=== PATIENT | female | born 2000 | race Caucasian/White ===

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

== ENCOUNTER 2020-01-15 08:26 | Inpatient (IN) | payer BC, OTHER ==
[2020-01-15] MEDS ORDERED: Cervidil 10 MG VAG SCH (17:00)
[2020-01-15] MEDS ORDERED: BRETHINE 1 MG/ML SQ PRN (17:00)
[2020-01-15] MEDS ORDERED: TYLENOL EXTRA STRENGTH 500 MG PO PRN (18:10)
[2020-01-15 19:08] LABS: Absolute Neutrophil Ct (ANC) 11.09 (1.4-6.9); BASOPHIL % 0.1 % (0.0-0.4); Basophil (Absolute #) 0.02 (0-0.4); Eosinophil % 0.6 % (0.00-5.0); Eosinophil (Absolute #) 0.09 (0-0.5); Hematocrit 34.7 % (35-47); Hemoglobin 10.9 gm/dl (12.0-16.0); Lymphocyte (Absolute #) 2.39 (1.0-4.6); Lymphocytes % 16.4 % (24.0-44.0); Mean Cell Volume 84.8 fl (78-100); Mean Corpuscular Hemoglobin 26.7 pg (26-32); Mean Corpuscular Hgb Concent. 31.4 g/dl (32-36); Mean Platelet Volume 12.2 fl (7.5-11.0); Monocyte (Absolute #) 0.98 (0.0-1.3); Monocytes % 6.7 % (0.0-12.0); Neutrophil % 76.2 % (36.0-66.0); Platelet Count 185 K/mm3 (150-450); Red Blood Count 4.09 M/mm3 (4.1-5.4); Red Cell Distribution Width 15.6 % (11.5-14.0); White Blood Count 14.6 K/mm3 (4.0-10.5)
[2020-01-15 19:29] LABS: Amphetamine,Urine NEGATIVE (NEGATIVE); Barbiturate,Urine NEGATIVE (NEGATIVE); Benzodiazepine,Urine NEGATIVE (NEGATIVE); Cocaine,Urine NEGATIVE (NEGATIVE); Methadone,Urine NEGATIVE (NEGATIVE); Opiate,Urine NEGATIVE (NEGATIVE); PCP,Urine NEGATIVE (NEGATIVE); THC,Urine NEGATIVE (NEGATIVE)
[2020-01-15] MEDS: Lactated Ringers 1,000 ML IV SCH (19:45)
[2020-01-16] MEDS ORDERED: PITOCIN 30 UNITS/ LR 500 ML 30 UNITS/500 ML IV.SOLN. IV SCH ×2 (06:00→18:30)
[2020-01-16] MEDS ORDERED: OB EPIDURAL NAROPIN/SUFENTANIL IN NACL EPIDURAL PRN (07:01)
[2020-01-16] MEDS ORDERED: Ephedrine Sulfate 50 MG/ML IV PRN (07:01)
[2020-01-16] MEDS ORDERED: Lactated Ringers 1,000 ML IV ONE (07:01)
[2020-01-16] MEDS: Lactated Ringers 1,000 ML IV SCH ×3 (08:16→15:48)
[2020-01-16] MEDS ORDERED: XYLOCAINE 1% HCL 20 ML MDV IJ PRN (14:11)
[2020-01-16] MEDS: Zofran 4 MG/2 ML VIAL IV PRN ×2 (14:28→18:36)
[2020-01-16] MEDS ORDERED: Ambien 10 MG PO PRN (17:22)
[2020-01-16] MEDS ORDERED: Dermoplast Spray TP PRN (17:22)
[2020-01-16] MEDS ORDERED: Mylicon 80MG PO PRN (17:22)
[2020-01-16] MEDS ORDERED: TUCKS TP PRN (17:22)
[2020-01-16] MEDS ORDERED: CORTISONE 1% CREAM TP PRN (17:22)
[2020-01-16] MEDS ORDERED: NORCO 5/325 MG PO PRN (17:22)
[2020-01-16] MEDS ORDERED: LANSINOH 40 GM TOP PRN (17:22)
[2020-01-16] MEDS: MOTRIN 400 MG PO PRN (19:15)
[2020-01-16] MEDS: Colace 100 MG PO SCH (21:50)
[2020-01-17] MEDS: MOTRIN 400 MG PO PRN ×2 (04:10→22:38)
[2020-01-17 04:28] LABS: Absolute Neutrophil Ct (ANC) 12.09 (1.4-6.9); BASOPHIL % 0.2 % (0.0-0.4); Basophil (Absolute #) 0.03 (0-0.4); Eosinophil % 1.1 % (0.00-5.0); Eosinophil (Absolute #) 0.19 (0-0.5); Hematocrit 34.4 % (35-47); Hemoglobin 10.9 gm/dl (12.0-16.0); Lymphocyte (Absolute #) 3.27 (1.0-4.6); Lymphocytes % 19.2 % (24.0-44.0); Mean Cell Volume 83.9 fl (78-100); Mean Corpuscular Hemoglobin 26.6 pg (26-32); Mean Corpuscular Hgb Concent. 31.7 g/dl (32-36); Mean Platelet Volume 11.6 fl (7.5-11.0); Monocyte (Absolute #) 1.42 (0.0-1.3); Monocytes % 8.4 % (0.0-12.0); Neutrophil % 71.1 % (36.0-66.0); Platelet Count 203 K/mm3 (150-450); Red Cell Distribution Width 15.7 % (11.5-14.0)
[2020-01-17] MEDS: Colace 100 MG PO SCH ×2 (09:15→21:46)
[2020-01-17] MEDS: FERREX 150 PO SCH (09:15)
[2020-01-17] MEDS ORDERED: M-M-R II Vaccine With Diluent SQ ONE (10:00)
[2020-01-17] MEDS ORDERED: FLUZONE QUAD 2020-2021 SYRINGE IM ONE (10:00)
[2020-01-18 02:13] VITALS: O2SAT 99
[2020-01-18] MEDS: FERREX 150 PO SCH (09:02)
[2020-01-18] MEDS: Colace 100 MG PO SCH (09:02)
[2020-01-18] MEDS: MOTRIN 400 MG PO PRN (09:02)
--- NOTE | 2020-01-18 10:37 | PCM.DS ---
Discharge Summary Date of Admission: 01/16/20 08:26 Admitting Physician: TAY LUU Consults: Consults on Case 01/16/20 07:05 Notify Anesthesia Provider PRN Primary Care Provider: TAY LUU Allergies Allergies No Known Drug Allergies Allergy (Verified 01/15/20 19:56) Hospital Summary - Hospital Course Hospital Course: patient had elective induction at 39 3/7wks, had . gbs was negative, meconium stained fluid but no distress on EFM. baby required resuscitation for meconium aspiration. mom had no complications from , no repair, mild lochia and did great with routine care. bottle feeding, well bonded with her son - Vitals & Intake/Output Vital Signs: Vital Signs Temperature 98.1 F 01/18/20 08:00 Pulse Rate 93 H 01/18/20 08:00 Respiratory Rate 18 01/18/20 08:00 Blood Pressure 116/69 01/18/20 08:00 O2 Sat by Pulse Oximetry 99 01/18/20 02:00 Intake & Output: Intake & Output 01/15/20 01/16/20 01/17/20 01/18/20 11:59 11:59 11:59 11:59 Intake Total 5800 6074 2450 Output Total 1500 Balance 5800 4574 2450 Weight 115.666 kg - Lab Result Diagrams: 01/17/20 04:15 Micro Results-Entire Visit: Microbiology 01/16/20 09:36 Urine Culture - Final Catherized NO GROWTH Discharge Exam General Appearance: no apparent distress, alert Neurologic Exam: alert, oriented x 3, cooperative, normal mood/affect, nml cerebellar function, sensation nml, No motor deficits Respiratory Exam: normal breath sounds, lungs clear, No respiratory distress Cardiovascular Exam: regular rate/rhythm, normal heart sounds Gastrointestinal/Abdomen Exam: soft, No tenderness, No mass Extremity Exam: normal inspection, normal range of motion Skin Exam: normal color, warm, dry Final Diagnosis/Problem List - Final Discharge Diagnosis/Problem (1) Vaginal delivery Current Visit: No Status: Acute Code(s): O80 - ENCOUNTER FOR FULL-TERM UNCOMPLICATED DELIVERY - Discharge Disposition: Home, Self-Care Condition: Stable Prescriptions: Continue Vits W-Ca,Fe,FA(<1Mg) [] 1 tab PO DAILY Follow up with: TAY LUU MD [Primary Care Provider] -
[2020-01-18 17:25] VITALS: BP 116/72; PULSE 80
== END 2020-01-18 15:40 | disposition home or self-care (01) | DRG 807 ==
LOC: OB 08:26 → OBSVTOIN 01-16 08:26
PROVIDERS: ADMIT Family Medicine; ATTEND Family Medicine
PROC: 10E0XZZ Delivery of Products of Conception, External Approach (ICD-10-PCS; principal; 2020-01-16)
DX: O69.81X0 Labor and delivery complicated by cord around neck, without compression, not applicable or unspecified (principal); Z37.0 Single live birth; Z3A.39 39 weeks gestation of pregnancy
CPT/HCPCS: 36415; 80307; 85025; 87086; 90471; 90707; G0378; J2405; J2590; J2795; A9270-GY

== ENCOUNTER 2020-03-14 23:24 | Emergency (ER) | payer BC, OTHER ==
[2020-03-14 23:54] VITALS: O2SAT 98
--- NOTE | 2020-03-15 00:17 | ERPHSYRPT ---
- History of Present Illness Time Seen by Provider: 03/15/20 00:12 Source: patient Exam Limitations: no limitations Physician History: pt cut left 5th digit on walei can at pip volar aspect with minor superficial cuts on fingers 234 as well. THe 5th digit wound is into SQ but tendon is not exposed and fxn is intact with fels/ext prox and distal phalanges. Neuro-vasc is intact also all digits. No FB with exploration and probing. underlying bone all nontender. Occurred: just prior to arrival Method of Injury: incised Quality: constant, sharpness Severity of Pain-Max: mild Severity of Pain-Current: mild Extremities Pain Location: 5th finger: left Modifying Factors: Improves With: immobilization, movement Associated Symptoms: none Allergies/Adverse Reactions: No Known Drug Allergies Allergy (Verified 03/14/20 23:50) Hx Tetanus, Diphtheria Vaccination/Date Given: Yes (could be >5 years) Hx Influenza Vaccination/Date Given: No Hx Pneumococcal Vaccination/Date Given: No - Review of Systems Constitutional: No Fever, No Chills Eyes: No Symptoms Ears, Nose, & Throat: No Symptoms Respiratory: No Cough, No Dyspnea Cardiac: No Chest Pain, No Edema, No Syncope Abdominal/Gastrointestinal: No Abdominal Pain, No Nausea, No Vomiting, No Diarrhea Genitourinary Symptoms: No Dysuria Musculoskeletal: No Back Pain, No Neck Pain Skin: Other (lac left 5th), No Rash Neurological: No Dizziness, No Focal Weakness, No Sensory Changes Psychological: No Symptoms Endocrine: No Symptoms Hematologic/Lymphatic: No Symptoms Immunological/Allergic: No Symptoms All Other Systems: Reviewed and Negative - Past Medical History Pertinent Past Medical History: No Neurological History: No Pertinent History ENT History: No Pertinent History Cardiac History: No Pertinent History Respiratory History: No Pertinent History Endocrine Medical History: No Pertinent History Musculoskeletal History: No Pertinent History GI Medical History: No Pertinent History History: No Pertinent History Psycho-Social History: Anxiety, Depression Female Reproductive Disorders: No Pertinent History - Past Surgical History Past Surgical History: No Neuro Surgical History: No Pertinent History Cardiac: No Pertinent History Respiratory: No Pertinent History Gastrointestinal: No Pertinent History Genitourinary: No Pertinent History Musculoskeletal: No Pertinent History Female Surgical History: No Pertinent History Other Surgical History: stop taking medicine last year. Concerta. - Social History Smoking Status: Never smoker How long have you smoked: 2yrs Exposure to second hand smoke: No Drug Use: none Patient Lives Alone: No - Nursing Vital Signs Nursing Vital Signs: Initial Vital Signs Temperature 98.1 F 03/14/20 23:52 Pulse Rate 99 H 03/14/20 23:52 Respiratory Rate 20 03/14/20 23:52 Blood Pressure 134/86 03/14/20 23:52 O2 Sat by Pulse Oximetry 98 03/14/20 23:52 Pain Scale Pain Intensity 0 - Physical Exam General Appearance: no apparent distress, alert Eyes, Ears, Nose, Throat Exam: moist mucous membranes Neck Exam: non-tender, supple Cardiovascular/Respiratory Exam: chest non-tender, normal breath sounds, regular rate/rhythm, no respiratory distress Abdominal Exam: non-tender, No guarding Back Exam: normal inspection, No vertebral tenderness Shoulder Exam: normal inspection, non-tender, no evidence of injury, normal ROM Elbow/Forearm Exam: normal inspection, non-tender, no evidence of injury, normal ROM Wrist Exam: normal inspection, non-tender, no evidence of injury, normal ROM Hand Exam: non-tender, normal ROM, laceration (left 5th, small superficial l 2-4 ), No bone tenderness DTR - Upper Extremity Exam: bicep (R): 2+, bicep (L): 2+, tricep (R): 2+, tricep (L): 2+ Neuro/Tendon Exam: normal sensation, normal motor functions, normal tendon functions, no evidence tendon injury, No motor deficit, No sensory deficit Mental Status Exam: alert, oriented x 3, cooperative Skin Exam: normal color, warm, dry, laceration SpO2 Interpretation: normal SpO2: 98 O2 Delivery: Room Air Procedures - Laceration/Wound Repair Left Finger Wound Location: Left, hand Wound Length (cm): 2 Wound's Depth, Shape: linear Wound Explored: no foreign body noted Irrigated: Yes (50 cc NS) Hibiclens Prep: Yes Anesthesia: local, 1% Lidocaine Volume Anesthetic (ccs): 2 Wound Debrided: minimal Wound Repaired With: sutures Suture Size/Type: 4-0, nylon Number of Sutures: 3 Layer Closure?: No Sterile Dressing Applied?: Yes Splint Applied?: No Sling Applied?: No - Course Nursing assessment & vital signs reviewed: Yes - Progress Progress: improved, re-examined Progress Note: 03/15/20 00:26 pt advised of some residual risk for undetected tendon injury or lac scar affecting ROM and to f/u PCP for referral and suture removal. Counseled pt/family regarding: diagnosis, need for follow-up - Departure Departure Disposition: Home Clinical Impression: Laceration, left 5th, superficial Left 2-4 Condition: Good Critical Care Time: No Referrals: TAY LUU MD [Primary Care Provider] - Instructions: Laceration Repair With Stitches (DC) Additional Instructions: keep wound clean apply bactroban twice daily with fresh bandage until healed. use on minor cuts as well. see your Dr to remove stitches in about 10 days. There may be some risk for scar tissue to affect range of motion or for undetected tendon or nerve injury which may require followup with your dr. to see hand specialist. return meantime if any concerns for infection as listed in instructions. followup with your Dr. for blood pressure. Prescriptions: Mupirocin [Bactroban OINTMENT] 22 gm TP BID #1 tube Cephalexin Mh 500 mg [Keflex 500 mg] 500 mg PO TID #14 capsule
[2020-03-15] MEDS ORDERED: Adacel Vial IM ONE ×2 (00:27→00:32)
[2020-03-15] MEDS ORDERED: KEFLEX 500 MG PO ONE (00:28)
[2020-03-15] MEDS ORDERED: KEFLEX 500 MG ONE (00:32)
[2020-03-15 01:01] VITALS: BP 109/84; PULSE 88
== END 2020-03-15 01:01 | disposition home or self-care (01) ==
LOC: ED 23:24
DX: S61.217A Laceration without foreign body of left little finger without damage to nail, initial encounter (principal); W26.8XXA Contact with other sharp object(s), not elsewhere classified, initial encounter
CPT/HCPCS: 12001; 90471; 90715; 99284; A9270-GY

== ENCOUNTER 2021-07-17 11:22 | Emergency (ER) | payer BC, OTHER ==
[2021-07-17 11:48] VITALS: BP 125/72
[2021-07-17] MEDS ORDERED: Sodium Chloride 0.9% 1000 ML 1,000 ML IV STA (11:55)
[2021-07-17] MEDS ORDERED: TORAdol 30 mg Injection IV ONE (11:55)
[2021-07-17] MEDS ORDERED: Reglan 10 MG/2 ML IV ONE (11:57)
[2021-07-17] MEDS ORDERED: BENADRYL 50 MG/ML IV ONE (11:57)
[2021-07-17] MEDS ORDERED: TORAdol 30 mg Injection ONE (12:08)
[2021-07-17] MEDS ORDERED: Sodium Chloride 0.9% 1000 ML 1,000 ML ONE (12:09)
[2021-07-17] MEDS ORDERED: BENADRYL 50 MG/ML ONE (12:09)
[2021-07-17] MEDS ORDERED: Reglan 10 MG/2 ML ONE (12:09)
[2021-07-17 12:32] LABS: Absolute Neutrophil Ct (ANC) 15.53 x10^3/uL (1.4-6.9); Basophil (Absolute #) 0.06 x10^3/uL (0-0.4); Eosinophil % 0.2 % (0.00-5.0); Eosinophil (Absolute #) 0.05 x10^3/uL (0-0.5); Hemoglobin 11.9 g/dL (12.0-16.0); Lymphocyte (Absolute #) 3.17 x10^3/uL (1.0-4.6); Lymphocytes % 15.3 % (24.0-44.0); Mean Cell Volume 85.5 fL (78-100); Mean Corpuscular Hemoglobin 28.3 pg (26-32); Mean Corpuscular Hgb Concent. 33.1 g/dL (32-36); Mean Platelet Volume 11.2 fL (7.5-11.0); Monocyte (Absolute #) 1.72 x10^3/uL (0.0-1.3); Monocytes % 8.3 % (0.0-12.0); Neutrophil % 75.2 % (36.0-66.0); Platelet Count 240 x10^3/uL (150-450); Red Blood Count 4.21 x10^6/uL (4.1-5.4); Red Cell Distribution Width 13.2 % (11.5-14.0); White Blood Count 20.7 x10^3/uL (4.0-10.5)
[2021-07-17 12:40] LABS: Appearance CLOUDY (CLEAR); Bilirubin SMALL (NEGATIVE); Glucose NEGATIVE (NEGATIVE)
[2021-07-17 12:41] LABS: Dipstick done @ ? MAIN LAB; Ketones NEGATIVE (NEGATIVE); Nitrite NEGATIVE (NEGATIVE); Protein,Urine Dip 30 (Negative); RBC LARGE Ery/ul (0-5); Specific Gravity 1.025 (1.005-1.025); Urobilinogen 1 mg/dL (0-1)
[2021-07-17 12:46] LABS: ALBUMIN 3.9 g/dL (3.5-5.0); ALKALINE PHOSPHATASE 54 U/L (38-126); ANION GAP 15.9 MEQ/L (5-15); BLOOD UREA NITROGEN 10 mg/dL (7-17); Bacteria MODERATE /HPF (NEGATIVE); CHLORIDE 102 mmol/L (98-107); Calcium 9.2 mg/dL (8.4-10.2); Carbon Dioxide 24 mmol/L (22-30); Creatinine 1 0.72 mg/dL (0.52-1.04); EST GLOMERULAR FILTRATION RATE > 60.0 ML/MIN; Epithelial Cells FEW /HPF (FEW); Glucose 109 mg/dL (74-106); Mucus MANY /HPF (NEGATIVE); Potassium 3.7 mmol/L (3.5-5.1); SGOT/AST 26 U/L (14-36); SGPT/ALT 55 U/L (0-35); SODIUM 138 mmol/L (137-145); Total Protein 7.1 g/dL (6.3-8.2)
[2021-07-17 12:48] LABS: Urine Cultured Indicated? YES
--- NOTE | 2021-07-17 13:06 | ERPHSYRPT ---
- History of Present Illness Time Seen by Provider: 07/17/21 11:23 Source: patient Exam Limitations: no limitations Patient Subjective Stated Complaint: pt reports sinus infection for one week, states she had a headache, facial pain, ear fullness, cough, fever, states now she also has some boils in her magan area. Triage Nursing Assessment: pt is aox3, appears in pain, pt unable to find position of comfort, afebrile at this time, resps easy and non labored, cap refill < 3 seconds, radial pulses strong and equal, pt skin moist, warm, intact. pt with 3 lesions to her magan area, two on her right buttock and one on her left buttock. skin is intact, skin is red, hot to touch and hard. Physician History: 20-year-old obese female presented in the ER with chief complaint of perirectal/buttocks swelling for the last 2 days along with fever chills. Patient reported gradually increased swelling with severe sharp shooting pain with 2 distinct swellings in the right gluteal fold and one on the left without any discharge. Pain is aggravated with sitting, movements, palpation, unable to find a comfortable spot. No history of diabetes mellitus or perirectal abscess in the past. Also have history of migraine and since yesterday having headaches with 2 episodes of vomiting which is unusual for her migraines. Migraines are poorly controlled 2-3 times a month with similar symptoms. Does not think this is the worst headache of her life. Timing/Duration: day(s) (2), constant, gradual onset, worse Fever Severity: severe Associated Symptoms: rash Allergies/Adverse Reactions: No Known Drug Allergies Allergy (Verified 07/17/21 11:48) Hx Tetanus, Diphtheria Vaccination/Date Given: Yes Hx Influenza Vaccination/Date Given: No Hx Pneumococcal Vaccination/Date Given: No Immunizations Up to Date: Yes Travel Risk - International Travel Have you traveled outside of the country in past 3 weeks: No - Coronavirus Screening Are you exhibiting any of the following symptoms?: No Symptoms: Fever, Cough: New Onset, Headaches/Body Aches/Fatigue Close contact with a COVID-19 positive Pt in past 14-21 Days: No - Vaccine Status Have you recieved a Covid-19 vaccination: No - Review of Systems Constitutional: No Symptoms Eyes: No Symptoms Ears, Nose, & Throat: Nose Congestion Respiratory: No Symptoms Cardiac: No Symptoms Abdominal/Gastrointestinal: No Symptoms Genitourinary Symptoms: No Symptoms Musculoskeletal: No Symptoms Skin: Cellulitis Neurological: No Symptoms Psychological: No Symptoms Endocrine: No Symptoms Hematologic/Lymphatic: No Symptoms Immunological/Allergic: No Symptoms - Past Medical History Pertinent Past Medical History: No Neurological History: No Pertinent History ENT History: No Pertinent History Cardiac History: No Pertinent History Respiratory History: No Pertinent History Endocrine Medical History: No Pertinent History Musculoskeletal History: No Pertinent History GI Medical History: No Pertinent History History: No Pertinent History Psycho-Social History: Anxiety, Depression Female Reproductive Disorders: No Pertinent History - Past Surgical History Past Surgical History: No Neuro Surgical History: No Pertinent History Cardiac: No Pertinent History Respiratory: No Pertinent History Gastrointestinal: No Pertinent History Genitourinary: No Pertinent History Musculoskeletal: No Pertinent History Female Surgical History: No Pertinent History Other Surgical History: stop taking medicine last year. Concerta. - Social History Smoking Status: Never smoker How long have you smoked: 2yrs Exposure to second hand smoke: No Drug Use: none Patient Lives Alone: No - Female History Hx Last Menstrual Period: 07/17/21 Hx Now: (unkn) - Nursing Vital Signs Nursing Vital Signs: Initial Vital Signs Temperature 98.8 F 07/17/21 11:33 Pulse Rate 119 H 07/17/21 11:33 Respiratory Rate 18 07/17/21 11:33 Blood Pressure 125/72 07/17/21 11:33 O2 Sat by Pulse Oximetry 97 07/17/21 11:33 Pain Scale Pain Intensity 9 - Physical Exam General Appearance: no apparent distress, alert Eye Exam: PERRL/EOMI, eyes nml inspection ENT Exam: nasal congestion Neck Exam: normal inspection, supple, full range of motion Respiratory Exam: normal breath sounds, lungs clear Cardiovascular/Chest Exam: normal heart sounds, tachycardia Gastrointestinal/Abdominal Exam: soft, non tender, no distention Rectal Exam: tenderness (3 distance swelling gluteal fold/perirectal area without any discharge. 1 area of induration on the left.), other Extremity Exam: non-tender, normal range of motion Neurologic Exam: alert, oriented x 3, cooperative Skin Exam: normal color SpO2 Interpretation: normal SpO2: 97 O2 Delivery: Room Air Ordered Tests: Active Orders 24 hr Category Date Time Status IV Insertion STAT Care 07/17/21 11:55 Active NPO (ED) STAT Care 07/17/21 11:55 Active PELVIS WITH CONTRAST [CT] Stat Exams 07/17/21 13:41 Taken BLOOD CULTURE Stat Lab 07/17/21 12:20 Received CBC W DIFF Stat Lab 07/17/21 12:20 Completed CMP Stat Lab 07/17/21 12:20 Completed CULTURE,URINE Stat Lab 07/17/21 12:20 Received HCG,QUALITATIVE URINE Stat Lab 07/17/21 12:26 Completed Lactic Acid Stat Lab 07/17/21 11:55 Completed UA W/RFX CULTURE Stat Lab 07/17/21 12:20 Completed Medication Summary Generic Name Dose Route Start Last Admin Trade Name Freq PRN Reason Stop Dose Admin Vancomycin HCl 2 gm in 400 mls @ 133.333 mls/hr 07/17/21 14:25 07/17/21 14:48 Vancomycin 2 Gram/400 Ml Bag IV 07/17/21 17:24 133.33 ml/hr STAT ONE 133.33 mls/hr Administration Discontinued Medications Generic Name Dose Route Start Last Admin Trade Name Freq PRN Reason Stop Dose Admin Diphenhydramine HCl 25 mg 07/17/21 11:57 07/17/21 12:30 Diphenhydramine Hcl 50 Mg/Ml Vial IV 07/17/21 11:58 25 mg STAT ONE Administration Diphenhydramine HCl Confirm 07/17/21 12:09 Diphenhydramine Hcl 50 Mg/Ml Vial Administered 07/17/21 12:10 Dose 50 mg .ROUTE .STK-MED ONE Sodium Chloride 1,000 mls @ 999 mls/hr 07/17/21 11:55 07/17/21 13:43 Sodium Chloride 0.9% 1000 Ml IV 07/17/21 12:55 Infused .Q1H1M STA Infusion Sodium Chloride Confirm 07/17/21 12:09 Sodium Chloride 0.9% 1000 Ml Administered 07/17/21 12:10 Dose 1,000 mls @ ud .ROUTE .STK-MED ONE Piperacillin Sod/Tazobactam 100 mls @ 200 mls/hr 07/17/21 13:16 07/17/21 13:41 Sod 3.375 gm/ Sodium Chloride IV 07/17/21 13:45 200 mls/hr STAT ONE Administration Sodium Chloride Confirm 07/17/21 13:39 Sodium Chloride 100ml Mini-Bag Plus Administered 07/17/21 13:40 Dose 100 mls @ ud IV .STK-MED ONE Vancomycin HCl Confirm 07/17/21 14:30 Vancomycin 2 Gram/400 Ml Bag Administered 07/17/21 14:31 Dose 2 gm in 400 mls @ ud IV .STK-MED ONE Ketorolac Tromethamine 30 mg 07/17/21 11:55 07/17/21 12:27 Ketorolac Tromethamine 30 Mg/Ml Inj IV 07/17/21 11:56 30 mg STAT ONE Administration Ketorolac Tromethamine Confirm 07/17/21 12:08 Ketorolac Tromethamine 30 Mg/Ml Inj Administered 07/17/21 12:09 Dose 30 mg .ROUTE .STK-MED ONE Metoclopramide HCl 10 mg 07/17/21 11:57 07/17/21 12:31 Metoclopramide Hcl 10 Mg/2 Ml Vial IV 07/17/21 11:58 10 mg STAT ONE Administration Metoclopramide HCl Confirm 07/17/21 12:09 Metoclopramide Hcl 10 Mg/2 Ml Vial Administered 07/17/21 12:10 Dose 10 mg .ROUTE .STK-MED ONE Piperacillin Sod/Tazobactam Sod Confirm 07/17/21 13:38 Piperacillin/Tazobactam Sodium 3.375 Gm Vial Administered 07/17/21 13:39 Dose 3.375 gm IV .STK-MED ONE Lab/Rad Data: Laboratory Result Diagrams 07/17/21 12:20 07/17/21 12:20 Laboratory Results 07/17/21 07/17/21 07/17/21 Range/Units 12:26 12:20 12:20 WBC (4.0-10.5) x10^3/uL RBC (4.1-5.4) x10^6/uL Hgb (12.0-16.0) g/dL Hct (35-47) % MCV (78-100) fL MCH (26-32) pg MCHC (32-36) g/dL RDW (11.5-14.0) % Plt Count (150-450) x10^3/uL MPV (7.5-11.0) fL Gran % (36.0-66.0) % Immature Gran % (Auto) (0.00-0.4) % Nucleat RBC Rel Count (0.00-0.1) % Eos # (Auto) (0-0.5) x10^3/uL Immature Gran # (Auto) (0.00-0.03) x10^3u/L Absolute Lymphs (auto) (1.0-4.6) x10^3/uL Absolute Monos (auto) (0.0-1.3) x10^3/uL Absolute Nucleated RBC (0.00-0.01) x10^3u/L Lymphocytes % (24.0-44.0) % Monocytes % (0.0-12.0) % Eosinophils % (0.00-5.0) % Basophils % (0.0-0.4) % Absolute Granulocytes (1.4-6.9) x10^3/uL Basophils # (0-0.4) x10^3/uL Sodium 138 (137-145) mmol/L Potassium 3.7 (3.5-5.1) mmol/L Chloride 102 (98-107) mmol/L Carbon Dioxide 24 (22-30) mmol/L Anion Gap 15.9 H (5-15) MEQ/L BUN 10 (7-17) mg/dL Creatinine 0.72 (0.52-1.04) mg/dL Estimated GFR > 60.0 ML/MIN Glucose 109 H (74-106) mg/dL Lactic Acid (0.4-2.0) Calcium 9.2 (8.4-10.2) mg/dL Total Bilirubin 1.10 (0.2-1.3) mg/dL AST 26 (14-36) U/L ALT 55 H (0-35) U/L Alkaline Phosphatase 54 (38-126) U/L Serum Total Protein 7.1 (6.3-8.2) g/dL Albumin 3.9 (3.5-5.0) g/dL Urinalys Dipstick Clnc MAIN LAB Urine Color DARK YELLOW (YELLOW) Urine Appearance CLOUDY (CLEAR) Urine pH 6.0 (5-6) Ur Specific Rembrandt 1.025 (1.005-1.025) POC Urine Protein Conf 30 (Negative) Urine Ketones NEGATIVE (NEGATIVE) Urine Nitrite NEGATIVE (NEGATIVE) Urine Bilirubin SMALL (NEGATIVE) Urine Urobilinogen 1 (0-1) mg/dL Urine Leukocytes NEGATIVE (NEGATIVE) Urine WBC (Auto) 16-25 (0-5) /HPF Urine RBC (Auto) 3-5 (0-2) /HPF U Epithel Cells (Auto) FEW (FEW) /HPF Urine Bacteria (Auto) MODERATE (NEGATIVE) /HPF Urine RBC LARGE (0-5) Horacio/ul Urine Mucus (Auto) MANY (NEGATIVE) /HPF Ur Culture Indicated? YES Urine Glucose NEGATIVE (NEGATIVE) mg/dL Urine HCG, Qual NEGATIVE (Negative) 07/17/21 07/17/21 Range/Units 12:20 11:55 WBC 20.7 H (4.0-10.5) x10^3/uL RBC 4.21 (4.1-5.4) x10^6/uL Hgb 11.9 L (12.0-16.0) g/dL Hct 36.0 (35-47) % MCV 85.5 (78-100) fL MCH 28.3 (26-32) pg MCHC 33.1 (32-36) g/dL RDW 13.2 (11.5-14.0) % Plt Count 240 (150-450) x10^3/uL MPV 11.2 H (7.5-11.0) fL Gran % 75.2 H (36.0-66.0) % Immature Gran % (Auto) 0.7 H (0.00-0.4) % Nucleat RBC Rel Count 0.0 (0.00-0.1) % Eos # (Auto) 0.05 (0-0.5) x10^3/uL Immature Gran # (Auto) 0.14 H (0.00-0.03) x10^3u/L Absolute Lymphs (auto) 3.17 (1.0-4.6) x10^3/uL Absolute Monos (auto) 1.72 H (0.0-1.3) x10^3/uL Absolute Nucleated RBC 0.00 (0.00-0.01) x10^3u/L Lymphocytes % 15.3 L (24.0-44.0) % Monocytes % 8.3 (0.0-12.0) % Eosinophils % 0.2 (0.00-5.0) % Basophils % 0.3 (0.0-0.4) % Absolute Granulocytes 15.53 H (1.4-6.9) x10^3/uL Basophils # 0.06 (0-0.4) x10^3/uL Sodium (137-145) mmol/L Potassium (3.5-5.1) mmol/L Chloride (98-107) mmol/L Carbon Dioxide (22-30) mmol/L Anion Gap (5-15) MEQ/L BUN (7-17) mg/dL Creatinine (0.52-1.04) mg/dL Estimated GFR ML/MIN Glucose (74-106) mg/dL Lactic Acid 1.2 (0.4-2.0) Calcium (8.4-10.2) mg/dL Total Bilirubin (0.2-1.3) mg/dL AST (14-36) U/L ALT (0-35) U/L Alkaline Phosphatase (38-126) U/L Serum Total Protein (6.3-8.2) g/dL Albumin (3.5-5.0) g/dL Urinalys Dipstick Clnc Urine Color (YELLOW) Urine Appearance (CLEAR) Urine pH (5-6) Ur Specific Rembrandt (1.005-1.025) POC Urine Protein Conf (Negative) Urine Ketones (NEGATIVE) Urine Nitrite (NEGATIVE) Urine Bilirubin (NEGATIVE) Urine Urobilinogen (0-1) mg/dL Urine Leukocytes (NEGATIVE) Urine WBC (Auto) (0-5) /HPF Urine RBC (Auto) (0-2) /HPF U Epithel Cells (Auto) (FEW) /HPF Urine Bacteria (Auto) (NEGATIVE) /HPF Urine RBC (0-5) Horacio/ul Urine Mucus (Auto) (NEGATIVE) /HPF Ur Culture Indicated? Urine Glucose (NEGATIVE) mg/dL Urine HCG, Qual (Negative) - Progress Progress: improved, pain not gone completely Progress Note: 07/17/21 15:45 20-year-old is evaluated for perirectal swelling with fever chills. Given fluids and morphine for symptomatic relief, on reevaluation feeling much better. Has a white count of 20 K. Given a dose of Zosyn and vancomycin. Obtain CT pelvis which showed finding consistent with perirectal abscess. Discussed with Dr. Oconnell recommended admission and I&D in the morning. I discussed plan with the patient who refused to stay because of her kids at home are alone. Discussed with Dr. Oconnell again, patient will be discharged and will report on the same day surgery tomorrow morning and recommended keeping her n.p.o. after midnight. Discussed signs symptoms of worsening needing return to ER which he seems understanding. Will give Bactrim and clindamycin to go home. Discussed with : Other Counseled pt/family regarding: lab results, diagnosis, need for follow-up, rad results - Departure Departure Disposition: Home Clinical Impression: Perirectal abscess, Acute UTI, Migraine Condition: Stable Critical Care Time: No Referrals: TAY LUU MD [Primary Care Provider] - Follow Up with PCP/3 days MIRZA OCONNELL MD [ACTIVE STAFF] - Follow up/PCP as directed (Tomorrow for reevaluation) Instructions: Skin Abscess Additional Instructions: Take pain medications as needed. N.p.o. after midnight. Reported same-day surgery tomorrow morning for incision and drainage. Return to ER for excruciating pain, persistent fever, palpitations etc. Prescriptions: Hydrocodone/Acetaminophen [Hydrocodone-Acetamin 7.5-325] 1 each PO Q6HPRN PRN 3 Days #12 tablet MDD 4 PRN Reason: Pain Smz/Tmp Ds Tablet [Bactrim Ds Tablet] 1 udtab PO BID #14 tablet clindamycin HCL [Clindamycin HCl] 300 mg PO QID 7 Days #28 cap
[2021-07-17] MEDS ORDERED: PIPERACILLIN/TAZOBACTAM 3.375 GM in Sodium Chloride 100ML MINI-BAG PLUS 100 ML IV ONE (13:16)
[2021-07-17] MEDS ORDERED: PIPERACILLIN/TAZOBACTAM IV ONE (13:38)
[2021-07-17] MEDS ORDERED: Sodium Chloride 100ML MINI-BAG PLUS 100 ML IV ONE (13:39)
[2021-07-17] MEDS ORDERED: VANCOMYCIN 2 GRAM/400 ML BAG 2 GM/400 ML PIGGYBACK IV ONE ×2 (14:25→14:30)
[2021-07-17 15:54] VITALS: PULSE 88; O2SAT 96
[2021-07-17 18:10] LABS: Slide Review 1 YES
--- NOTE | 2021-07-18 08:50 | XRAY ---
Indication: Perirectal abscesses. Elevated WBC. Multiple contiguous axial images obtained through the pelvis only using 80 cc Isovue 370 contrast. Comparison: None Anus demonstrates a right-sided 3.8 x 1.5 x 2.0 cm fluid collection with tiny air bubbles and surrounding induration favoring known perirectal abscess. No pelvic pathologic lymphadenopathy. There are a few centimeter/subcentimeter inguinal lymph nodes, none pathologically enlarged. Visualized bowel loops appear nonobstructed. Remaining uterus, urinary bladder, and iliac vessels are normal in CT appearance. Impression: Small perirectal abscess as detailed. Comment: Preliminary interpretation made by [facility]. No critical discrepancy.
== END 2021-07-17 17:58 | disposition home or self-care (01) ==
LOC: ED 11:22
DX: K61.1 Rectal abscess (principal); N39.0 Urinary tract infection, site not specified; G43.909 Migraine, unspecified, not intractable, without status migrainosus; R50.9 Fever, unspecified; Z79.891 Long term (current) use of opiate analgesic
CPT/HCPCS: 36000; 36415; 72193; 80053; 81015; 83605; 84703; 85025; 87040; 87077; 87086; 87186; 96360; 96374; 96375; 99284; J1200; J1885; J3370

== ENCOUNTER 2023-12-27 13:57 | Emergency (ER) | payer BC ==
--- NOTE | 2023-12-27 14:03 | ERPHSYRPT ---
- History of Present Illness Time Seen by Provider: 12/27/23 14:03 Source: patient Exam Limitations: no limitations Physician History: This is a 23-year-old white female patient of Dr. Luu who presents by private vehicle secondary to dark vaginal bleeding and associated bilateral suprapubic cramping. The patient states her last menstrual period started on 11/16/2023. She does not recall how long her last menstrual period lasted. Patient has taken test that have been positive. In addition, per her report, she is also had quantitative hCG levels that were elevated then dipped down and then increased. Patient states she has had vaginal spotting that has been intermittent throughout the last 2 months. Today, things changed in terms of the color, constant nature of her vaginal bleeding and the associated suprapubic cramping. Patient takes no medications chronically and she has no known drug allergies. Her first obstetrics appointment is scheduled for 01/03/2024. Patient has a history of anxiety and depression. Timing/Duration: today Activites at Onset: none Quality: cramping (Bilateral suprapubic) Onset Location: suprapubic (suprapubic bilateral) Pain Radiation: none Severity of Pain-Max: mild (To moderate) Severity of Pain-Current: mild (To moderate) Prior abdominal problems: none Sexual intercourse history: non-contributory Modifying Factors: Improves With: nothing, other Associated Symptoms: abdominal pain (Lateral suprapubic cramping), , vaginal discharge (Dark vaginal bleeding) Allergies/Adverse Reactions: No Known Drug Allergies Allergy (Verified 12/27/23 14:04) Home Medications: No Reportable Medications [No Reported Medications] 12/27/23 [History] Hx Tetanus, Diphtheria Vaccination/Date Given: Yes Hx Influenza Vaccination/Date Given: No Hx Pneumococcal Vaccination/Date Given: No Travel Risk - International Travel Have you traveled outside of the country in past 3 weeks: No - Emerging Infectious Disease Are you exhibiting symptoms associated with any current EIDs: No - Review of Systems Constitutional: No Symptoms Eyes: No Symptoms Ears, Nose, & Throat: No Symptoms Respiratory: No Symptoms Cardiac: No Symptoms Abdominal/Gastrointestinal: Abdominal Pain (Bilateral suprapubic cramping), No Nausea, No Vomiting, No Diarrhea, No Constipation Genitourinary Symptoms: No Symptoms, , Vaginal Bleeding (Bilateral suprapubic cramping with associated dark vaginal bleeding) Musculoskeletal: No Symptoms Skin: No Symptoms Neurological: Other (Lightheaded) Psychological: No Symptoms Endocrine: No Symptoms Hematologic/Lymphatic: No Symptoms Immunological/Allergic: No Symptoms All Other Systems: Reviewed and Negative - Past Medical History Pertinent Past Medical History: No Neurological History: No Pertinent History ENT History: No Pertinent History Cardiac History: No Pertinent History Respiratory History: No Pertinent History Endocrine Medical History: No Pertinent History Musculoskeletal History: No Pertinent History GI Medical History: No Pertinent History History: No Pertinent History Psycho-Social History: Anxiety, Depression Female Reproductive Disorders: No Pertinent History - Past Surgical History Past Surgical History: No Neuro Surgical History: No Pertinent History Cardiac: No Pertinent History Respiratory: No Pertinent History Gastrointestinal: No Pertinent History Genitourinary: No Pertinent History Musculoskeletal: No Pertinent History Female Surgical History: No Pertinent History Other Surgical History: stop taking medicine last year. Concerta. - Social History Smoking Status: Never smoker How long have you smoked: 2yrs Exposure to second hand smoke: No Drug Use: none Patient Lives Alone: No - Nursing Vital Signs Nursing Vital Signs: Initial Vital Signs Temperature 99 F 12/27/23 14:04 Pulse Rate 124 H 12/27/23 14:04 Respiratory Rate 20 12/27/23 14:04 Blood Pressure 136/87 12/27/23 14:04 O2 Sat by Pulse Oximetry 98 12/27/23 14:04 Pain Scale Pain Intensity 5 - Physical Exam General Appearance: no apparent distress, alert, anxiety Eye Exam: PERRL/EOMI, eyes nml inspection Ears, Nose, Throat Exam: normal ENT inspection, moist mucous membranes Neck Exam: normal inspection, non-tender, supple, full range of motion Respiratory Exam: normal breath sounds, lungs clear, airway intact, No chest tenderness, No respiratory distress Cardiovascular Exam: tachycardia Gastrointestinal/Abdomen Exam: soft, normal bowel sounds, tenderness Pelvic Exam: not done Rectal Exam: not done Back Exam: normal inspection, normal range of motion, No CVA tenderness, No vertebral tenderness Extremity Exam: normal inspection, normal range of motion, pelvis stable Neurologic Exam: alert, oriented x 3, cooperative, mineral mixer II-XII nml as tested, nml cerebellar function, nml station & gait, sensation nml Skin Exam: normal color, warm, dry Lymphatic Exam: No adenopathy SpO2 Interpretation: normal O2 Delivery: Room Air - Course Nursing assessment & vital signs reviewed: Yes Ordered Tests: Active Orders 24 hr Category Date Time Status OB <14 WKS 1ST GESTATION [US] Stat Exams 12/27/23 14:26 Taken CBC W DIFF Stat Lab 12/27/23 14:47 Completed CMP Stat Lab 12/27/23 14:47 Completed CULTURE,URINE Stat Lab 12/27/23 14:29 Received HCG QUALITATIVE, SERUM Stat Lab 12/27/23 14:47 Completed HCG, Quantitative (Inhouse) Stat Lab 12/27/23 14:47 Completed UA W/RFX UR CULTURE Stat Lab 12/27/23 14:29 Completed Lab/Rad Data: Laboratory Result Diagrams 12/27/23 14:47 12/27/23 14:47 Laboratory Results 12/27/23 12/27/23 12/27/23 Range/Units 14:47 14:47 14:47 WBC 9.3 (3.98-10.04) x10^3/uL RBC 4.29 (3.93-5.22) x10^6/uL Hgb 11.4 (11.2-15.7) g/dL Hct 34.9 (34.1-44.9) % MCV 81.4 (79.4-94.8) fL MCH 26.6 (25.6-32.2) pg MCHC 32.7 (32.2-35.5) g/dL RDW 13.5 (11.7-14.4) % Plt Count 279 (182-369) x10^3/uL MPV 10.7 (9.4-12.3) fL Gran % 55.3 (34.0-71.1) % Immature Gran % (Auto) 0.4 (0.001-0.429) % Nucleat RBC Rel Count 0.0 (0.00-0.2) % Eos # (Auto) 0.13 (0.04-0.36) x10^3/uL Immature Gran # (Auto) 0.04 H (0.001-0.031) x10^3u/L Absolute Lymphs (auto) 3.33 (1.18-3.74) x10^3/uL Absolute Monos (auto) 0.63 (0.24-0.86) x10^3/uL Absolute Nucleated RBC 0.00 (0.00-0.012) x10^3u/L Lymphocytes % 35.7 (19.3-51.7) % Monocytes % 6.8 (4.7-12.5) % Eosinophils % 1.4 (0.7-5.8) % Basophils % 0.4 (0.1-1.2) % Absolute Granulocytes 5.16 (1.56-6.13) x10^3/uL Basophils # 0.04 (0.01-0.08) x10^3/uL Sodium 143 (135-145) mmol/L Potassium 3.7 (3.5-5.1) mmol/L Chloride 109 H (98-107) mmol/L Carbon Dioxide 22 (22-30) mmol/L Anion Gap 15.3 H (5-15) MEQ/L BUN 15 (7-17) mg/dL Creatinine 0.94 (0.52-1.04) mg/dL Estimated GFR 86.9 ML/MIN Glucose 102 (74-106) mg/dL Calcium 9.3 (8.4-10.2) mg/dL Total Bilirubin 0.30 (0.2-1.3) mg/dL AST 117 H (14-36) U/L ALT 224 H (0-35) U/L Alkaline Phosphatase 58 (38-126) U/L Serum Total Protein 7.0 (6.3-8.2) g/dL Albumin 4.0 (3.5-5.0) g/dL Serum HCG, Qual POSITIVE (NEGATIVE) Beta HCG, Quant 77.38 mIU/ml Urine Color (Yellow) Urine Appearance (Clear) Urine pH (4.6-8.0) Ur Specific [place] (1.005-1.030) Urine Protein (Negative) Urine Glucose (UA) (Negative) mg/dL Urine Ketones (Negative) Urine Blood (Negative) Urine Nitrite (Negative) Urine Bilirubin (Negative) Urine Urobilinogen (0.2) mg/dL Ur Leukocyte Esterase (Negative) U Hyaline Cast (Auto) (0-2) /LPF Urine Microscopic RBC (0-5) /HPF Urine Microscopic WBC (0-5) /HPF Ur Epithelial Cells (None Seen) /HPF Urine Bacteria (None Seen) /HPF Urine Culture Reflexed (NO) 12/27/23 Range/Units 14:29 WBC (3.98-10.04) x10^3/uL RBC (3.93-5.22) x10^6/uL Hgb (11.2-15.7) g/dL Hct (34.1-44.9) % MCV (79.4-94.8) fL MCH (25.6-32.2) pg MCHC (32.2-35.5) g/dL RDW (11.7-14.4) % Plt Count (182-369) x10^3/uL MPV (9.4-12.3) fL Gran % (34.0-71.1) % Immature Gran % (Auto) (0.001-0.429) % Nucleat RBC Rel Count (0.00-0.2) % Eos # (Auto) (0.04-0.36) x10^3/uL Immature Gran # (Auto) (0.001-0.031) x10^3u/L Absolute Lymphs (auto) (1.18-3.74) x10^3/uL Absolute Monos (auto) (0.24-0.86) x10^3/uL Absolute Nucleated RBC (0.00-0.012) x10^3u/L Lymphocytes % (19.3-51.7) % Monocytes % (4.7-12.5) % Eosinophils % (0.7-5.8) % Basophils % (0.1-1.2) % Absolute Granulocytes (1.56-6.13) x10^3/uL Basophils # (0.01-0.08) x10^3/uL Sodium (135-145) mmol/L Potassium (3.5-5.1) mmol/L Chloride (98-107) mmol/L Carbon Dioxide (22-30) mmol/L Anion Gap (5-15) MEQ/L BUN (7-17) mg/dL Creatinine (0.52-1.04) mg/dL Estimated GFR ML/MIN Glucose (74-106) mg/dL Calcium (8.4-10.2) mg/dL Total Bilirubin (0.2-1.3) mg/dL AST (14-36) U/L ALT (0-35) U/L Alkaline Phosphatase (38-126) U/L Serum Total Protein (6.3-8.2) g/dL Albumin (3.5-5.0) g/dL Serum HCG, Qual (NEGATIVE) Beta HCG, Quant mIU/ml Urine Color Yellow (Yellow) Urine Appearance Clear (Clear) Urine pH 5.5 (4.6-8.0) Ur Specific [place] 1.020 (1.005-1.030) Urine Protein Negative (Negative) Urine Glucose (UA) Negative (Negative) mg/dL Urine Ketones Negative (Negative) Urine Blood Moderate A (Negative) Urine Nitrite Negative (Negative) Urine Bilirubin Negative (Negative) Urine Urobilinogen 1.0 A (0.2) mg/dL Ur Leukocyte Esterase Trace A (Negative) U Hyaline Cast (Auto) NONE SEEN (0-2) /LPF Urine Microscopic RBC 0-2 (0-5) /HPF Urine Microscopic WBC 0-2 (0-5) /HPF Ur Epithelial Cells Few (None Seen) /HPF Urine Bacteria Few A (None Seen) /HPF Urine Culture Reflexed YES (NO) - Progress Progress: re-examined Air Movement: good Progress Note: 12/27/23 14:57 My medical decision making and the assignment of moderate complexity to this patient's medical issue today is based on review of the patient's past medical history, review of the patient's medication list, reviewed patient drug allergy list, history present illness and physical findings on examination. The workup in this patient includes a CBC, CMP, urinalysis, quantitative hCG, serum qualitative hCG, OB less than 14 weeks ultrasound Differential diagnosis includes but is not limited to vaginal bleeding in first trimester, pending spontaneous miscarriage, urinary tract infection 12/27/23 15:45 Mikayla, the director integrated/technologist provided me with the preliminary report of no uterine and no ectopic . 12/27/23 15:47 I interpreted the laboratory data results. Based on the laboratory data results the patient's quantitative hCG is low in the last 4 readings have been as follows: On 12/19/2023 it was 167. On 12/21/2023 the level was 94. On 12/26/2023, the level was 112. Today, 12/27/2023, the level was 77. The qualitative serum test is positive. 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 If she does not make contact with them today, she can call them first thing tomorrow morning, 12/28/2023, for further management and instructions Blood Culture(s) Obtained: No Antibiotics given: No Counseled pt/family regarding: lab results, diagnosis, need for follow-up, rad results Medical Desision Making - Diagnostic Testing Diagnostic test were ordered, analyzed, and reviewed by me: Yes Radiological Interpretation: Reviewed by me, Teleradiologist Report - Risk of complications Low Risk: Low risk of morbidity from additional dx testing or treatment - Departure Departure Disposition: Home Clinical Impression: Vaginal bleeding, Positive blood test Condition: Stable Critical Care Time: No Referrals: TAY LUU MD [Primary Care Provider] - Follow up/PCP as directed Additional Instructions: Drink plenty of fluids. Call your senior wind turbine technician's office today. If you are not able to communicate with them today, call them first thing tomorrow morning on 12/28/2023 for further management and instructions.
[2023-12-27 14:22] VITALS: TEMP 99
[2023-12-27 14:50] LABS: Absolute Neutrophil Ct (ANC) 5.16 x10^3/uL (1.56-6.13); BASOPHIL % 0.4 % (0.1-1.2); Basophil (Absolute #) 0.04 x10^3/uL (0.01-0.08); Eosinophil % 1.4 % (0.7-5.8); Eosinophil (Absolute #) 0.13 x10^3/uL (0.04-0.36); Hematocrit 34.9 % (34.1-44.9); Hemoglobin 11.4 g/dL (11.2-15.7); IMMATURE GRAN # 0.04 x10^3u/L (0.001-0.031); IMMATURE GRAN % 0.4 % (0.001-0.429); Lymphocyte (Absolute #) 3.33 x10^3/uL (1.18-3.74); Lymphocytes % 35.7 % (19.3-51.7); Mean Cell Volume 81.4 fL (79.4-94.8); Mean Corpuscular Hemoglobin 26.6 pg (25.6-32.2); Mean Corpuscular Hgb Concent. 32.7 g/dL (32.2-35.5); Mean Platelet Volume 10.7 fL (9.4-12.3); Monocyte (Absolute #) 0.63 x10^3/uL (0.24-0.86); Monocytes % 6.8 % (4.7-12.5); Neutrophil % 55.3 % (34.0-71.1); Platelet Count 279 x10^3/uL (182-369); Red Blood Count 4.29 x10^6/uL (3.93-5.22); Red Cell Distribution Width 13.5 % (11.7-14.4); White Blood Count 9.3 x10^3/uL (3.98-10.04)
[2023-12-27 14:58] LABS: Appearance Clear (Clear); Bilirubin Negative (Negative); Blood Moderate (Negative); Epithelial Cells Few /HPF (None Seen); Glucose, Urine Negative (Negative); Hyaline Casts NONE SEEN /LPF (0-2); Ketones Negative (Negative); Leukocyte Esterase Trace (Negative); Nitrite Negative (Negative); Ph 5.5 (4.6-8.0); Protein,Urine Dip Negative (Negative); RBC 0-2 /HPF (0-5); WBC 0-2 /HPF (0-5)
[2023-12-27 14:59] LABS: Bacteria Few /HPF (None Seen)
[2023-12-27 15:08] LABS: HCG SERUM TEST POSITIVE (NEGATIVE)
[2023-12-27 15:20] LABS: ANION GAP 15.3 MEQ/L (5-15); BILIRUBIN,TOTAL 0.3 mg/dL (0.2-1.3); Calcium 9.3 mg/dL (8.4-10.2); Creatinine 1 0.94 mg/dL (0.52-1.04); EST GLOMERULAR FILTRATION RATE 86.9 ML/MIN; HCG, Quantitative (Inhouse) 77.38 mIU/ml; Potassium 3.7 mmol/L (3.5-5.1)
[2023-12-27 15:58] VITALS: RESP 16
[2023-12-27 16:03] VITALS: BP 109/64; PULSE 104; O2SAT 96
--- NOTE | 2023-12-27 16:31 | XRAY ---
Indication: Cramping and vaginal bleeding. Positive test. Two-dimensional transabdominal and transvaginal early OB ultrasound performed. Comparison: None for this patency. Uterus anteverted measuring 9.2 x 4.6 x 7.8 cm. Lower uterine segment demonstrates 3 mm nabothian cyst. No other focal solid/cystic uterine mass. Endometrial stripe measures 1.3 cm without intrauterine gestational sac, pole, or heart tones. Right ovary measures 4.3 x 2.4 x 2.8 cm and left measures 3.8 x 2.5 x 3.4 cm. Normal follicular cysts and perfusion bilaterally. 2.1 cm dominant right ovary cyst. Tiny cul-de-sac fluid presumed physiologic from rupture/leaking cyst. No suspicious adnexal mass. Impression: 1. Negative for intrauterine/ectopic . 2. Incidental tiny nabothian cyst, 2.1 cm dominant right ovary cyst, and tiny physiologic cul-de-sac fluid.
== END 2023-12-27 16:08 | disposition home or self-care (01) ==
LOC: ED 13:57
DX: N93.9 Abnormal uterine and vaginal bleeding, unspecified (principal); Z32.01 Encounter for pregnancy test, result positive; R10.2 Pelvic and perineal pain
CPT/HCPCS: 36415; 76801; 80053; 81001; 84702; 84703; 85025; 87086; 99283

== ENCOUNTER 2024-01-14 13:24 | Emergency (ER) | payer BC | END 2024-01-14 15:00 | disposition left against medical advice (07) | LOC: ED 13:24 | DX: Z53.21 Procedure and treatment not carried out due to patient leaving prior to being seen by health care provider (principal) ==

== ENCOUNTER 2024-02-28 00:38 | Emergency (ER) | payer BC ==
[2024-02-28 00:55] VITALS: TEMP 95.9; O2SAT 99
--- NOTE | 2024-02-28 01:06 | ERPHSYRPT ---
- History of Present Illness Time Seen by Provider: 02/28/24 00:49 Source: patient Exam Limitations: no limitations Patient Subjective Stated Complaint: pt states rash to medhat arm. pt states that she used new lotion Triage Nursing Assessment: pt ambulated into the er; pt is axo x4; c/o medhat arm; pt states itching and pain to medhat arm; small raised red bumps to medhat arm; no drainage present; no respiratory distress present; vitals wnl Physician History: Patient is here with bilateral upper extremity dermatitis. Patient states that she started using a new body wash at home to 3 days ago. This is when the rash started. She has not taken anything for it at home. She has not taken Benadryl, cortisone cream, any other medication. She states that she has not made an appointment with her PCP. She arrives tonight because the itching feels worse. No falls no trauma no airway issues. She has no difficulty breathing, wheezing, other signs of allergic reaction. As I walk in the room she is nontoxic, breathing comfortably, 99% on room air. Patient is taking PO well. Same number of urinations and defecations. The patient has no signs of altered mental status, nuchal rigidity, signs of meningitis. The patient is up-to-date on all vaccinations. Allergies/Adverse Reactions: No Known Drug Allergies Allergy (Verified 02/28/24 00:43) Hx Tetanus, Diphtheria Vaccination/Date Given: Yes Hx Influenza Vaccination/Date Given: No Hx Pneumococcal Vaccination/Date Given: No Travel Risk - International Travel Have you traveled outside of the country in past 3 weeks: No - Emerging Infectious Disease Are you exhibiting symptoms associated with any current EIDs: No - Past Medical History Pertinent Past Medical History: Yes Neurological History: No Pertinent History ENT History: No Pertinent History Cardiac History: No Pertinent History Respiratory History: No Pertinent History Endocrine Medical History: No Pertinent History Musculoskeletal History: No Pertinent History GI Medical History: No Pertinent History History: No Pertinent History Psycho-Social History: Anxiety, Depression Female Reproductive Disorders: No Pertinent History - Past Surgical History Past Surgical History: No Neuro Surgical History: No Pertinent History Cardiac: No Pertinent History Respiratory: No Pertinent History Gastrointestinal: No Pertinent History Genitourinary: No Pertinent History Musculoskeletal: No Pertinent History Female Surgical History: No Pertinent History Other Surgical History: stop taking medicine last year. Concerta. - Female History Hx Last Menstrual Period: 01/27/24 Hx Now: No - Social History Smoking Status: Never smoker How long have you smoked: 2yrs Exposure to second hand smoke: No Drug Use: none Patient Lives Alone: No - Social Determinants of Health Will the patient participate in the screening: Yes Do you worry about a steady place to live?: No Do you have any problems with any of the following?: No known problems In the past 12 months,have you had to go without utilities?: No Transportation Issues: No Has anyone in your support network made you feel unsafe?: No Have you or anyone in your house had to go without enough: No - Nursing Vital Signs Nursing Vital Signs: Initial Vital Signs Temperature 95.9 F 02/28/24 00:46 Pulse Rate 114 H 02/28/24 00:46 Respiratory Rate 20 02/28/24 00:46 Blood Pressure 135/71 02/28/24 00:46 O2 Sat by Pulse Oximetry 99 02/28/24 00:46 Pain Scale Pain Intensity 3 - Physical Exam SpO2: 99 Comments: 02/28/24 01:08 Review of Systems Constitutional: Negative for fever. HENT: Negative for congestion. Respiratory: Negative for shortness of breath. Cardiovascular: Negative for chest pain. Gastrointestinal: Negative for abdominal pain. Genitourinary: Negative for dysuria. Musculoskeletal: Negative for back pain. Skin: Negative for rash. Neurological: Negative for headaches. Psychiatric/Behavioral: Negative for behavioral problems. All other systems reviewed and are negative. Physical Exam Vitals signs and nursing note reviewed. Constitutional: Appearance: Patient is well-developed. HENT: Head: Normocephalic and atraumatic. Eyes: Conjunctiva/sclera: Conjunctivae normal. Neck: Musculoskeletal: Normal range of motion. Trachea: No tracheal deviation. Cardiovascular: Rate and Rhythm: Normal rate. Heart sounds normal. Pulmonary: Effort: Pulmonary effort is normal. No respiratory distress. Abdominal: Palpations: Abdomen is soft. Musculoskeletal: General: No deformity. Bilateral upper extremity dermatitis, no urticaria, some excoriations from itching. No obvious deformity, sensation intact, 2+ capillary refill, 2 point tactile discrimination intact. 5 out of 5 strength. Full range of motion without pain. Compartments are soft, nontender. Overlying skin shows no tenting, bruising, ecchymosis. Skin: General: Skin is warm and dry. Neurological/ Psychiatric: Mental Status: Mental status, behavior, interaction with environment is appropriate for patient's age and condition - Course Nursing assessment & vital signs reviewed: Yes Ordered Tests: Medication Summary Discontinued Medications Generic Name Dose Route Start Last Admin Trade Name Shantal PRN Reason Stop Dose Admin Dexamethasone Sodium Phosphate 10 mg 02/28/24 01:03 Dexamethasone Sod Phosphate 10 Mg/Ml PO 02/28/24 01:04 STAT ONE - Progress Progress Note: 02/28/24 01:08 Patient peers have bilateral arm dermatitis consistent with history of new body lotion. Plan for oral Decadron here, Medrol Dosepak going home. Patient can buy [id number] Benadryl and cortisone cream as well. No signs of oral airway issue. I did discuss all this with the patient. States her understanding will follow-up as described. Counseled pt/family regarding: diagnosis, need for follow-up - Departure Departure Disposition: Home Clinical Impression: Rash and nonspecific skin eruption Condition: Stable Critical Care Time: No Referrals: TAY LUU MD [Primary Care Provider] - Follow up/PCP as directed Instructions: Eczema ED Prescriptions: Methylprednisolone Packet [Medrol Dosepack] 4 mg PO UD #1 packet
[2024-02-28] MEDS ORDERED: DECADRON 10MG INJ. ONE (01:07)
[2024-02-28] MEDS: DECADRON 10MG INJ. PO ONE (01:08)
[2024-02-28 01:12] VITALS: BP 122/81; PULSE 108; RESP 18
== END 2024-02-28 01:29 | disposition home or self-care (01) ==
LOC: ED 00:38
DX: R21 Rash and other nonspecific skin eruption (principal); L30.9 Dermatitis, unspecified
CPT/HCPCS: 99281; J1100